=== PATIENT | male | born 1980 | race Caucasian/White ===

== ENCOUNTER 2020-04-27 10:43 | Emergency (ER) | payer OTHER, MEDICAID, SELFPAY ==
[2020-04-27 10:52] VITALS: BP 136/75; PULSE 88; RESP 17; TEMP 36.7; O2SAT 98; BMI 23.1
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
--- NOTE | 2020-04-27 11:05 | DI.RAD.S_ITS ---
PROCEDURE: XR RIBS BI MIN 4V W CXR1V INDICATIONS: rib pain both sides after injury TECHNIQUE: 4 views of the bilateral ribs were acquired, along with a single view chest. COMPARISON: None. FINDINGS: Surgical changes and devices: None. Bones and chest wall: No displaced rib fracture or suggestion of a nondisplaced rib fracture. No suspicious bony lesions. Overlying soft tissues appear unremarkable. Lungs and pleura: No pleural effusions or pneumothorax. Lungs appear clear. Mediastinum: Mediastinal contours appear normal. Heart size is normal. IMPRESSION: No displaced rib fracture or suggestion of a nondisplaced rib fracture. No pneumothorax. Dictated by: Henrique Briscoe M.D. on 04/27/2020 at 10:31 Approved by: Henrique Briscoe M.D. on 04/27/2020 at 10:33
== END 2020-04-27 11:52 | disposition home or self-care (01) ==
PROVIDERS: Emergency Provider Emergency Medicine
DX: S20.219A Contusion of unspecified front wall of thorax, initial encounter (principal); W50.0XXA Accidental hit or strike by another person, initial encounter
CPT/HCPCS: 71111; 99283

== ENCOUNTER 2020-06-03 12:26 | Emergency (ER) | payer OTHER, MEDICAID, SELFPAY ==
[2020-06-03 12:41] VITALS: BP 122/73; PULSE 93; RESP 16; TEMP 36.8; O2SAT 97; BMI 22.8
--- NOTE | 2020-06-03 12:43 | DI.RAD.S_ITS ---
PROCEDURE: XR FOOT LT MIN 3V INDICATIONS: injured from skateboarding TECHNIQUE: 3 views of the foot were acquired. COMPARISON: None. FINDINGS: Bones: There is a mildly comminuted fracture of the distal aspect of the 2nd proximal phalanx extending to the proximal interphalangeal joint. No dislocations. No suspicious bony lesions. Soft tissues: There is mild soft tissue swelling of the 2nd toe. No tibiotalar joint effusion. Achilles tendon appears normal. IMPRESSION: 1. Mildly comminuted fracture of the 2nd proximal phalanx with extension to the 2nd PIP joint. Dictated by: Yong Adam M.D. on 06/03/2020 at 13:49 Approved by: Yong Adam M.D. on 06/03/2020 at 13:51
--- NOTE | 2020-06-03 13:06 | ED.LOWEXIN ---
HPI - Extremity Injury (Lower) <CIRA Gutiérrez - Last Filed: 06/04/20 00:20> General Chief Complaint: Extremity Injury, Lower Stated Complaint: LEFT POINTER TOE INJURY Time Seen by Provider: 06/03/20 12:44 Source: patient Mode of arrival: Wheelchair Limitations: no limitations History of Present Illness HPI Narrative: This is a 40 year male, smoker, with chief complain of left forefoot pain after he injured the affected foot writing skateboard/keep flipper last night at 1130. Patient reports this is an isolated injury. Patient is not able to recall exact mechanism of injury and pain was not significant initially. After 30 minutes or so patient starting to have discomfort and this morning he had difficult time bearing weight, move his toes, or ambulate affected foot due to increase in pain and reports 10/10 with these activities. Patient reports intact sensation. He reports several injuries to affected foot, toes, ankles since he has been an athelete. Patient had used ice this morning without much improvement. Had not tried any medication for pain. Related Data Allergies Allergy/AdvReac Type Severity Reaction Status Date / Time No Known Drug Allergies Allergy Verified 04/27/20 10:52 Review of Systems <CIRA Gutiérrez - Last Filed: 06/04/20 00:20> Review of Systems Narrative: General: Denies fever, chills, fatigue, malaise, sweats. HEENT: Denies sinus pain, ear pain, sore throat, difficulty swallowing, dizziness. Respiratory: Denies dyspnea, cough, wheezing, hemoptysis, sputum. Cardiovascular: Denies chest pain, palpitations, orthopnea, edema. Gastrointestinal: Denies nausea, vomiting, abdominal pain, diarrhea, constipation, melena. : Denies dysuria, frequency, incontinence, hematuria, urinary retention. Musculoskeletal: See HPI Skin: Denies rash, skin lesions, or other. Neurologic: Denies weakness, headache, numbness, change in speech, confusion, seizures, incoordination. Patient History <CIRA Gutiérrez - Last Filed: 06/04/20 00:20> Medical History (Updated 06/03/20 @ 14:23 by CIRA Gutiérrez) No significant past medical history (Acute) Patient denies medical problems (Acute) Surgical History (Updated 06/03/20 @ 13:12 by CIRA Gutiérrez) No pertinent past surgical history (Acute) Social History Smoking Status: Current every day smoker Smoking Status: Current every day smoker tobacco type: cigarettes alcohol intake frequency: a few times a week Substance Use Type: marijuana Exam <CIRA Gutiérrez - Last Filed: 06/04/20 00:20> Narrative Exam Narrative: General appearance: well developed, well nourished, in no acute distress. Head: normocephalic, atraumatic, no scalp lesions, non-tender. ENT: Hearing grossly intact. Airway patent. Neck/Thyroid: neck supple, full range of motion, no visible masses or meningeal signs. No JVD, non-tender without lymphadenopathy. Skin: no suspicious rashes, lesions over visible areas. Warm and dry and appropriate color for ethnicity. Heart: no clubbing, no cyanosis, no edema. S1 and S2 normal. RRR w/o murmurs, clicks, or bruits. Lungs: Breathing even and unlabored. No stridor. No accessory muscles used. Able to speak in full sentences. Chest: normal shape and expansion. Abdomen: non-obese, non-distended. Neurologic: alert and oriented. Cognitive exam, DRIER AND GRINDER TENDER and PNS grossly intact on informal exam. Psych: good eye contact, normal affect. Initial Vital Signs Initial Vital Signs: Vital Signs Temperature 98.3 F 06/03/20 12:41 Pulse Rate 93 H 06/03/20 12:41 Respiratory Rate 16 06/03/20 12:41 Blood Pressure 122/73 06/03/20 12:41 Pulse Oximetry 97 06/03/20 12:41 Extrem Left lower extremity: ankle Details: normal to inspection; no tenderness and no swelling and foot Details: normal capillary refill, abnormal to inspection, tenderness Location: of the dorsal foot and of another digit Location: the 2nd digit and the 3rd digit, abnormal ROM of toe Details: pain with active ROM and pain with passive ROM, edema Location: of another digit Location: the 2nd digit, vascular exam Details: dorsalis pedis pulse present and normal capillary refill, motor-sensory exam Details: light-touch normal and other (erythema on 2nd toe); no unusual warmth, no abrasions and no lacerations <DO Miko Perea Last Filed: 06/07/20 18:20> Initial Vital Signs Initial Vital Signs: Vital Signs Temperature 98.3 F 06/03/20 12:41 Pulse Rate 93 H 06/03/20 12:41 Respiratory Rate 16 06/03/20 12:41 Blood Pressure 122/73 06/03/20 12:41 Pulse Oximetry 97 06/03/20 12:41 Procedures <CIRA Gutiérrez - Last Filed: 06/04/20 00:20> Orthopedic Splinting/Casting Injury #1: Side: left Lower Extremity Injury Location: toe Lower Extremity Immobilizer: post-op shoe and nicki tape Other Orthopedic Equipment: crutches Post splinting neuro exam: intact Post splinting vascular exam: intact Placed by: Nursing Scores <CIRA Gutiérrez - Last Filed: 06/04/20 00:20> GCS Montezuma coma scale eye opening: Spontaneous Bentley coma scale verbal response: Orientated [place] coma scale motor response: Obey commands Montezuma coma scale total score: 15 Course <CIRA Gutiérrez - Last Filed: 06/04/20 00:20> Orders Ordered: Discontinued Medications Ibuprofen (Advil) 800 mg PO NOW ONE Stop: 06/03/20 13:11 Last Admin: 06/03/20 14:03 Dose: 800 mg Documented by: KADE Vital Signs Vital signs: Vital Signs - 8 hr 06/03/20 12:41 Temperature 98.3 F Pulse Rate 93 H Respiratory Rate 16 Blood Pressure 122/73 Pulse Oximetry 97 <DO Miko Perea Last Filed: 06/07/20 18:20> Orders Ordered: Discontinued Medications Ibuprofen (Advil) 800 mg PO NOW ONE Stop: 06/03/20 13:11 Last Admin: 06/03/20 14:03 Dose: 800 mg Documented by: KADE Vital Signs Vital signs: Vital Signs - 8 hr 06/03/20 12:41 Temperature 98.3 F Pulse Rate 93 H Respiratory Rate 16 Blood Pressure 122/73 Pulse Oximetry 97 MDM - Extremity Injury (Lower) <CIRA Gutiérrez - Last Filed: 06/04/20 00:20> Differential Diagnosis Differential diagnosis: Likely fracture of toe and other (Contusion toes) Medical Records Attestation: I reviewed the patient's medical records. Imaging Data XR-Foot LT: Radiologist's Impression: [address] [address] XRay Report Signed Patient: Aguila Cazares TMR#: [id number] : 1980Acct:[id number] Age/Sex: 40 / MDate of Service: 06/03/20 Loc: ED Accession Number: [id number] Procedure: XR foot LT min 3V Ordering Provider: Mitch Titus PROCEDURE: XR FOOT LT MIN 3V INDICATIONS: injured from skateboarding TECHNIQUE: 3 views of the foot were acquired. COMPARISON: None. FINDINGS: Bones: There is a mildly comminuted fracture of the distal aspect of the 2nd proximal phalanx extending to the proximal interphalangeal joint. No dislocations. No suspicious bony lesions. Soft tissues: There is mild soft tissue swelling of the 2nd toe. No tibiotalar joint effusion. Achilles tendon appears normal. IMPRESSION: 1. Mildly comminuted fracture of the 2nd proximal phalanx with extension to the 2nd PIP joint. Dictated by: Yong Adam M.D. on 06/03/2020 at 13:49 Approved by: Yong Adam M.D. on 06/03/2020 at 13:51 MDM Narrative Medical decision making narrative: This is a 40-year-old male who presents to ED with left forefoot pain with increased redness, swelling, and pain to 2nd toe after he had injured last night after riding skateboard without shoes and is unable to recall exact mechanism of injury. X-ray test shows mildly communicated fracture of 2nd proximal phalanx with extension to the 2nd PIP joint. Patient has intact sensation and cap refill. Affected foot was splinted with nicki-taped (gauze) and ortho shoes provided for immobilization. Crutches provided and set for his height with teaching. Patient advised to follow-up with [facility] orthopedist and return precautions were discussed with patient. He verbalized understanding in agreement with treatment plan including RICE therapy. Discharge Plan Departure Patient Disposition: Home Clinical Impression: Closed fracture of toe Qualifiers: Encounter type: initial encounter Toe: unspecified toe Fracture alignment: nondisplaced Laterality: left Qualified Code(s): S92.912A - Unspecified fracture of left toe(s), initial encounter for closed fracture Discharge Date/Time: 06/03/20 14:49 Instructions: DI for Toe Fracture Activity Restrictions/Additional Instructions: You have been diagnosed with [mildly comminuted fracture of 2nd proximal toe ]. What to do: *Take your medications as directed. Please take [id number] Tylenol and or Motrin as needed for discomfort. Tylenol 650-1000 mg up to 3 to 4 times a day as needed for pain. Ibuprofen 400-600 mg up to 3 times a day with food to decrease GI irritation. Please use ortho shoes and nicki-taped. Use crutches for weight-bearing if there is pain. *Follow up with your primary care provider/orthopedist in 2-3 days, call for an appointment. Let them know you were seen in the ED and that we asked you to be seen in follow up. *Return to ED if you have any new, worsening, or concerning symptoms, such as [worsening pain, swelling, increase tingling/numbness/weakness affected toe, chest pain, breathing difficulty, unable to tolerate fluids or any acute concerns]. Referrals: [facility] [Provider Group] [facility] [Outside] <Aguila Fountain, - Last Filed: 06/07/20 18:20> Cosign ED Attending Cosyanyature Attestation: Dr Fountain Co-Sign Statement: I was available for consultation during this patient's emergency department visit. This chart is signed by myself for administrative purposes only. I did not have direct contact with this patient during this visit. They were seen independently by the APC.
[2020-06-03] MEDS: IBUPROFEN 400 MG TABLET 800 MG PO (14:03)
[2020-06-03 14:48] VITALS: BP 118/78; PULSE 75; RESP 14; O2SAT 98
--- NOTE | 2020-06-03 14:50 | PC.NURSE ---
demonstrated proper use of crutches. ortho shoe in place.
== END 2020-06-03 14:49 | disposition home or self-care (01) ==
PROVIDERS: Emergency Provider Nurse Practitioner Family
DX: S92.912A Unspecified fracture of left toe(s), initial encounter for closed fracture (principal); V00.131A Fall from skateboard, initial encounter
CPT/HCPCS: 73630; 99283; 99284

== ENCOUNTER 2020-07-26 11:35 | Emergency (ER) | payer OTHER, MEDICAID, SELFPAY ==
[2020-07-26 11:48] VITALS: BP 130/86; PULSE 71; RESP 16; TEMP 36.2; O2SAT 99
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
[2020-07-26 12:11] LABS: Bacteria Urine None Seen; RBC Urine None Seen (0-5/HPF); WBC Urine None Seen (0-5/HPF)
[2020-07-26 12:19] LABS: Appearance Urine UA CLEAR; Bilirubin Urine UA NEGATIVE (NEGATIVE); Color Urine UA YELLOW; Glucose Urine UA NEGATIVE (Negative); Ketones Urine UA NEGATIVE (NEGATIVE); Leukocyte Esterase Urine UA NEGATIVE (NEGATIVE); Nitrite Urine UA NEGATIVE (Negative); Occult Blood Urine UA NEGATIVE (Negative); Protein Urine UA NEGATIVE (Negative); Urobilinogen Urine UA 0.2 E.U./dL (0.2)
[2020-07-26 12:28] LABS: Culture Indicated Urine Cult Not Indicated
[2020-07-26 13:45] LABS: Urine N gonorrhoeae NOT DETECTED
[2020-07-26 13:51] LABS: Urine Chlamydia NOT DETECTED
== END 2020-07-26 12:49 | disposition home or self-care (01) ==
PROVIDERS: Emergency Provider Nurse Practitioner Family
DX: Z11.3 Encounter for screening for infections with a predominantly sexual mode of transmission (principal)
CPT/HCPCS: 81001; 87491; 87591; 99281; 99282

== ENCOUNTER 2020-11-12 10:58 | Emergency (ER) | payer OTHER, MEDICAID, SELFPAY ==
[2020-11-12 11:00] VITALS: BP 127/83; PULSE 75; RESP 14; TEMP 36.7; O2SAT 98; BMI 23.1
--- NOTE | 2020-11-12 11:37 | ED_ITS ---
HPI - Ear Problem General Chief complaint: Ear Stated complaint: Right ear pain/loss of hearing x3 days Time Seen by Provider: 11/12/20 11:27 Source: patient Mode of arrival: Ambulatory Limitations: no limitations History of Present Illness HPI Narrative: The patient complains of right ear pain for past 3 days. No no injuries. Not using Q-tips to clean ear. No drainage. No fever. Related Data Previous Rx's Medication Instructions Recorded amoxicillin-pot clavulanate 1 tab PO BID #14 tab 11/12/20 [Augmentin] ciprofloxacin-dexamethasone 4 drp EAR-RIGHT Q12H #7.5 ml 11/12/20 [Ciprodex] ciprofloxacin-hydrocortisone 3 drp EAR-RIGHT Q12H #10 ml 11/12/20 hydrocodone-acetaminophen 1 tab PO Q6H PRN #12 tab 11/12/20 ondansetron 4 mg PO Q8H PRN #10 tab 11/12/20 Allergies Allergy/AdvReac Type Severity Reaction Status Date / Time No Known Drug Allergies Allergy Verified 11/12/20 11:04 Review of Systems Review of Systems Narrative: GENERAL: Denies chills, fatigue, malaise, fever, sweats. HEENT: Denies sinus pain, complaint ear pain, denies sore throat RESPIRATORY: Denies dyspnea, cough CARDIOVASCULAR: Denies chest pain, palpitations GASTROINTESTINAL: Denies nausea, vomiting, abdominal pain : Denies dysuria, frequency, hematuria MUSCULOSKELETAL: denies muscle or bony pain SKIN: Denies rash, skin lesions NEUROLOGIC: Denies weakness, numbness ROS Unobtainable: All systems reviewed & are unremarkable except as noted in HPI and below Patient History Medical History No significant past medical history Patient denies medical problems Surgical History No pertinent past surgical history Social History Smoking Status: Current every day smoker Smoking Status: Current every day smoker tobacco type: cigarettes alcohol intake frequency: 3 or more drinks per day Substance Use Type: marijuana Exam Narrative Exam Narrative: GENERAL: in no distress, not toxic not dyspneic HEAD: Normocephalic. EYES: Pupils equal round No scleral icterus. No injection no discharge ENT: Mucous membranes moist. Examination left ear nontender tragus normal exte rnal ear. Normal tympanic membrane no erythema no bulging. Examination right ear. No tragus tenderness. External exam normal. There is a small cystic structure at the 11 o'clock position in the external canal. No surrounding erythema. No discharge. Tympanic membrane not erythematous or bulging. NECK: Trachea midline. CARDIOVASCULAR: Regular rate and rhythm without murmurs RESPIRATORY: Clear to auscultation. Breath sounds equal bilaterally. No wheezes, rales, or rhonchi. NEURO: AOx4. SKIN: Warm and dry PSYCH: Not anxious, is cooperative Initial Vital Signs Initial Vital Signs: Vital Signs Temperature 98.0 F 11/12/20 11:00 Pulse Rate 75 11/12/20 11:00 Respiratory Rate 14 11/12/20 11:00 Blood Pressure 127/83 11/12/20 11:00 Pulse Oximetry 98 11/12/20 11:00 Course Course Course Narrative: No new issues during course of stay. Orders Ordered: ED Orders 11/12/20 16:26 Wound Culture and Gram Stain Stat Reevaluation(s) Reevaluation #1: Patient agrees with treatment plan to see Dr. Gardner today. Time: 11:47 Reevaluation #2: Patient understands will need to have scope here in the emergency department. Consultations Consultation #1: s/w dr alban gardner, ent, will see pt today. no abx at this time Time: 11:47 Consultation #2: Dr. Gardner in the department now to evaluate patient your pain. Time: 16:10 Vital Signs Vital signs: Vital Signs - 8 hr 11/12/20 11:00 Temperature 98.0 F Pulse Rate 75 Respiratory Rate 14 Blood Pressure 127/83 Pulse Oximetry 98 Medical Decision Making Differential Diagnosis Differential Diagnosis: Otitis externa. Otitis media. Cyst. Abscess MDM Narrative Medical decision making narrative: Appropriate for discharge home. Patient seen by Dr. Gardner here in the emergency department for bedside otoscope/procedure. Please see his notes. Patient agrees with treatment plan and discharged home. Not toxic. Discharge Plan Departure Patient Disposition: Home Clinical Impression: Earache Instructions: DI for Ear Pain-Adult Activity Restrictions/Additional Instructions: Return if worse if any questions or concerns. Call your insurance company to see if your able to see Dr. Alban Gardner for follow-up within a week for recheck of your here. See family doctor for recheck as well. Continue ear care as instructed by Dr. Gardner. Prescriptions: New hydrocodone-acetaminophen 5-325 mg tablet 1 tab PO Q6H PRN (Reason: pain) Qty: 12 RF: 0 ondansetron 4 mg tablet,disintegrating 4 mg PO Q8H PRN (Reason: nausea and vomiting) Qty: 10 RF: 0 ciprofloxacin-hydrocortisone 0.2-1 % drops,suspension 3 drp EAR-RIGHT Q12H Qty: 10 RF: 0 amoxicillin-pot clavulanate [Augmentin] 875-125 mg tablet 1 tab PO BID Qty: 14 RF: 0 ciprofloxacin-dexamethasone [Ciprodex] 0.3-0.1 % drops,suspension 4 drp EAR-RIGHT Q12H Qty: 7.5 RF: 0 Referrals: Alban Gardner MD [Physician] -
--- NOTE | 2020-11-12 16:45 | PC.NURSE ---
Pt advised to come back to ED by Dr Cooper so he can evaluate him in a room with suction to drain abscess in ear. arrived back and placed in 3A. RN sent wound culture per Dr Cooper from R ear canal. Cipro cancelled and new ABX written--see MD note. Pt DC'd post procedure.
[2020-11-12 16:47] VITALS: BP 126/84; PULSE 76; RESP 16; O2SAT 97
--- NOTE | 2020-11-12 19:39 | PM.CN ---
History of Present Illness Consult details Date Patient Seen: 11/12/20 Time Patient Seen: 16:00 Chief complaint: Right ear pain/loss of hearing x3 days Reason for consult: RIGHT ear canal abscess Requesting provider: Nayan Henderson Narrative: 40-year-old male Q-tip user presents with a 3 day history of right otalgia. No prior similar history, no chronic hearing loss, no otorrhea, tinnitus, or balance issues. Cyst versus abscess of the ear canal noted by Dr. Henderson, consultation requested for specialized care including the operating microscope. No other ENT complaints. Meds Home Medications and Allergies Home Medications Medication Instructions Recorded Confirmed Type amoxicillin-pot clavulanate 1 tab PO BID #14 tab 11/12/20 Rx [Augmentin] ciprofloxacin-dexamethasone 4 drp EAR-RIGHT Q12H #7.5 ml 11/12/20 Rx [Ciprodex] ciprofloxacin-hydrocortisone 3 drp EAR-RIGHT Q12H #10 ml 11/12/20 Rx hydrocodone-acetaminophen 1 tab PO Q6H PRN #12 tab 11/12/20 Rx ondansetron 4 mg PO Q8H PRN #10 tab 11/12/20 Rx Allergies Allergy/AdvReac Type Severity Reaction Status Date / Time No Known Drug Allergies Allergy Verified 11/12/20 11:04 Review of Systems Review of Systems ROS: Yes All systems reviewed with the patient and are negative except as otherwise documented Exam Vital Signs (past 8 hours): - 11/12/20 16:47 Pulse Rate 76 Respiratory Rate 16 Blood Pressure 126/84 Pulse Oximetry 97 Oxygen Delivery Method Room Air Narrative Exam Narrative: Well-developed well-nourished male in no acute distress. Head is normocephalic atraumatic. Alert and oriented x3. External ears are normal, obvious purulence and moisture within the right ear canal. Left ear canal is normal with intact tympanic membrane, clear middle ear. External nose is normal, oral cavity not examined. Neck is soft nontender no masses. See procedure note for details, separately dictated. Assessment & Plan Assessment & Plan narrative: Assessment: Right external auditory canal abscess/infected cyst, with spontaneous rupture 2. Right acute otitis externa, no evidence of otitis media 3. otalgia Plan: As discussed with the patient and the ER physician, dry ear precautions, soak the wick with Ciprodex 2-3 times daily for at least the next week, or 2 days beyond any symptoms, may remove when asymptomatic or may fall out on its own. Begin the Augmentin, use at least a few days beyond any symptoms whatsoever, a minimum of 5-7 days, may alter based on his response and culture results. If necessary, and allowed by his insurance plan, he may follow-up in our office next week, but may call us at any point. I do not recommend Q-tips in the future. Patient agrees with the plan, understands, and is appreciative.
--- NOTE | 2020-11-12 19:47 | PM.OP.1 ---
Operative Date/Time/Diagnoses Date of procedure: 11/12/20 Time of procedure: 16:00 Pre-op diagnosis: Right external auditory canal abscess/infected cyst, otorrhea, otalgia Post-op diagnosis: same Procedure & Clinicians Procedure: Debridement/cerumen removal right utilizing the binocular microscope Same procedure as scheduled: Yes Indications: 40-year-old male with the above diagnoses presents for the above procedure. Following verbal consent he elected to proceed. Surgeon: Mario Cooper Click Yes if Unassisted: Yes Anesthesia Type: None Operative Notes Findings: Purulence and keratin debris, scant cerumen cleared from canal to reveal spontaneously draining cyst versus abscess of the posterior medial cartilaginous canal with mild to moderate swelling but significant tenderness. TM intact, clear middle ear. Closure Type: not applicable Specimen(s): other (Swab culture from right ear canal) Estimated Blood Loss (mL): 0 Blood products transfused: none Procedure in detail: Following verbal consent, he was placed in the supine position and the operating microscope was used to examine 1st the normal left ear and then the right ear. Suction was used to clear the muco purulence and keratin debris as well as to milk the abscess of any further liquid. A wick was placed in the ear canal, later to be saturated with the Ciprodex once he Fills it. He tolerated the procedure well without known complication. Culture was taken prior to the suctioning. Complications: none Post-operative Condition: stable Disposition: other (Home) Plan for aftercare: Maintain wick as long as symptomatic, soaked with Ciprodex 2-3 times daily, begin Augmentin for up to 10 days, use at least a few days beyond any symptoms. Call with any worsening, follow-up in the office next week if possible. No water exposure to that ear.
== END 2020-11-12 16:30 | disposition home or self-care (01) ==
PROVIDERS: Emergency Provider Emergency Medicine
DX: H92.01 Otalgia, right ear (principal)
CPT/HCPCS: 69020; 87070; 87075; 87205; 99281; 99282

== ENCOUNTER 2023-11-07 08:37 | Emergency (ER) | payer OTHER, MEDICAID, SELFPAY ==
[2023-11-07 08:45] VITALS: BP 122/59; PULSE 63; RESP 16; TEMP 36.4; O2SAT 99; BMI 23.1
--- NOTE | 2023-11-07 08:50 | DI.RAD.S_ITS ---
PROCEDURE: XR ANKLE RT MIN 3V INDICATIONS: pain/swelling/ skateboard injury TECHNIQUE: 3 views of the ankle were acquired. COMPARISON: None. FINDINGS: Bones: No acute fractures or dislocations. Ankle mortise is normally aligned. No suspicious bony lesions. Soft tissues: No tibiotalar joint effusion. Achilles tendon appears normal. IMPRESSION: No acute osseous abnormality. If there is continued clinical concern or persistent symptoms, repeat radiographs or cross-sectional imaging (e.g. CT, MRI) may be helpful for further evaluation. Approved by: Huey Salvador M.D. on 11/07/2023 at 9:59
--- NOTE | 2023-11-07 09:02 | ED_ITS ---
HPI - Extremity Injury (Lower) General Chief Complaint: Extremity Injury, Lower Stated Complaint: rolled ankle Time Seen by Provider: 11/07/23 09:02 Source: patient, RN notes reviewed and old records reviewed Mode of arrival: Ambulatory Limitations: no limitations History of Present Illness HPI Narrative: 43-year-old male chronic tobacco use, patient presents with complaint of right ankle pain. Patient was skateboarding yesterday lead in his left ankle, has not had tingling sensation different than breaking or spreading the ankle before proceeding to continue to skate woke up with increased right ankle pain decreased range of motion and swelling. Painful to weightbear. Patient states no significant swelling. He is pain particularly in the medial side of the ankle. Has some of the lateral but not as much. He states he feels a little bit of pressure to the foot it is he can not really straightened the foot. He states he has broken his ankle in the past he has had sprains he states this feels different. He does state that he landed directly kind of flat on his foot did not invert or jacque the ankle when a landed. Patient states no other medical issues. Denies any other major surgeries. Does use tobacco daily, drinks alcohol, uses marijuana no IV or recreational drugs. Related Data Previous Rx's Medication Instructions Recorded amoxicillin 875 mg-potassium 1 tab PO BID #14 tabs 11/12/20 clavulanate 125 mg tablet (Augmentin) ciprofloxacin 0.2 %-hydrocortisone 3 drp EAR-RIGHT Q12H #10 mL 11/12/20 1 % ear drops,suspension ciprofloxacin 0.3 %-dexamethasone 4 drp EAR-RIGHT Q12H #7.5 mL 11/12/20 0.1 % ear drops,suspension (Ciprodex) hydrocodone 5 mg-acetaminophen 325 1 tab PO Q6H PRN pain #12 tabs 11/12/20 mg tablet ondansetron 4 mg disintegrating 4 mg PO Q8H PRN nausea and 11/12/20 tablet vomiting #10 tabs tramadol 50 mg tablet 50 mg PO Q6H PRN pain #10 tabs 11/07/23 Allergies Allergy/AdvReac Type Severity Reaction Status Date / Time No Known Drug Allergies Allergy Verified 11/12/20 11:04 Review of Systems Review of Systems ROS Unobtainable: All systems reviewed & are unremarkable except as noted in HPI and below Patient History Medical History No significant past medical history Patient denies medical problems Surgical History No pertinent past surgical history Social History Smoking Status: Current every day smoker Smoking Status: Current every day smoker tobacco type: cigarettes alcohol intake frequency: 3 or more drinks per day Alcohol type: beer Substance Use Type: marijuana Exam Narrative Exam Narrative: GENERAL: Alert and oriented x three, male in mild distress HEENT: Head normocephalic, atraumatic, EOMI, pupils reactive, face symmetric, moist mucous membranes NECK: Supple, full range of motion CARDIOVASCULAR: Regular rate and rhythm without murmurs, rubs or gallops. RESPIRATORY: Breath sounds equal bilaterally, no wheezes rales or rhonchi. EXTREMITIES: Decreased range of motion of the right ankle, patient has normal range of motion of the knee and hip. No obvious edema, patient has quite a bit of tenderness over the medial malleoli, mildly over the lateral. Patient has a little bit of mild deformity of the ankle but he states that is normal from prior injuries. No obvious ecchymosis or edema. No bony tenderness over the toes, metatarsals or heel. Patient does have pain with weight-bearing., no clubbing or edema. Neurovascularly intact. Patient has 2+ dorsalis pedis. Sensation throughout the foot. NEUROLOGICAL: Cranial nerves II through XII grossly intact. Moving all extremities SKIN: Warm, dry, no petechiae, no rashes or lesions. Initial Vital Signs Initial Vital Signs: Vital Signs Temperature 97.5 F L 11/07/23 08:45 Pulse Rate 63 11/07/23 08:45 Respiratory Rate 16 11/07/23 08:45 Blood Pressure 122/59 L 11/07/23 08:45 Pulse Oximetry 99 11/07/23 08:45 Oxygen Delivery Method Room Air 11/07/23 08:45 Course Orders Ordered: ED Orders 11/07/23 08:50 XR ankle RT min 3V Stat Vital Signs Vital signs: Vital Signs - 8 hr 11/07/23 08:45 Temperature 97.5 F L Pulse Rate 63 Respiratory Rate 16 Blood Pressure 122/59 L Pulse Oximetry 99 Oxygen Delivery Method Room Air MDM - Extremity Injury (Lower) Imaging Data Extremity x-ray #1: Radiologist's Impression: [address] [address] XRay Report Signed Patient: Aguila Cazares MR#: [id number] : 1980 Acct:[id number] Age/Sex: 43 / M Date of Service: 11/07/23 Loc: ED Accession Number: [id number] Procedure: XR ankle RT min 3V Ordering Provider: Gabi Christine D.O. PROCEDURE: XR ANKLE RT MIN 3V INDICATIONS: pain/swelling/ skateboard injury TECHNIQUE: 3 views of the ankle were acquired. COMPARISON: None. FINDINGS: Bones: No acute fractures or dislocations. Ankle mortise is normally aligned. No suspicious bony lesions. Soft tissues: No tibiotalar joint effusion. Achilles tendon appears normal. IMPRESSION: No acute osseous abnormality. If there is continued clinical concern or persistent symptoms, repeat radiographs or cross-sectional imaging (e.g. CT, MRI) may be helpful for further evaluation. Approved by: Huey Salvador M.D. on 11/07/2023 at 9:59 MDM Narrative Medical decision making narrative: 43-year-old male who meet [place] ankle rules for imaging with fall kind of directly onto his ankle without inversion or eversion. Patient has quite a bit of tenderness on medial malleolus and painful to weightbear. X-ray imaging shows no acute change. Patient is quite tender with weight- bearing and over the medial malleolus we will place in walking boot, crutches with recommendation for follow up in 7-10 days if no improvement in symptoms. Discharge Plan Departure Patient Disposition: Home Clinical Impression: Ankle sprain Clinical Impression: (Ruled Out): Lower leg edema Activity Restrictions/Additional Instructions: Follow-up in 7-10 days for repeat imaging if your symptoms are not improving, you can sometimes have small fractures that do not show up on initial x-ray and will be visible on repeat imaging. Your x-ray today does not show any obvious break or fracture. You may take Tylenol up to a 1000 mg every 6 hours and/or ibuprofen up to 600 mg every 6 hours. You can take tramadol 1 to 2 tablets every 6 hours as needed for pain. This medication can make you sleepy do not drive, perform hazardous activities or adriana e any major decisions while taking it. This medication will make you constipated please take a stool softener once to twice daily until stools are soft and regular. Splint Care: Keep splint clean and dry. Elevated affected body part to decrease swelling. OK to use ice pack on the affected body part. Use for 15-20 minutes each time, for 5-6x per day. If you develop worsening pain, numbness, tingling, discoloration of the affected body part, loosen the splint by loosening the SARITHA wrap, and either see your doctor for an urgent re-assessment, or return to the Emergency Department. Return to the Emergency Department for any new or worsening symptoms. Prescriptions: New tramadol 50 mg tablet 50 mg PO Q6H PRN (Reason: pain) Qty: 10 0RF No Action hydrocodone-acetaminophen 5-325 mg tablet 1 tab PO Q6H PRN (Reason: pain) Qty: 12 0RF ondansetron 4 mg tablet,disintegrating 4 mg PO Q8H PRN (Reason: nausea and vomiting) Qty: 10 0RF ciprofloxacin-hydrocortisone 0.2-1 % drops,suspension 3 drp EAR-RIGHT Q12H Qty: 10 0RF amoxicillin-pot clavulanate [Augmentin] 875-125 mg tablet 1 tab PO BID Qty: 14 0RF ciprofloxacin-dexamethasone [Ciprodex] 0.3-0.1 % drops,suspension 4 drp EAR-RIGHT Q12H Qty: 7.5 0RF Referrals: Logan Barajas MD [Physician] - Stand Alone Forms: Patient Portal/API
== END 2023-11-07 10:29 | disposition home or self-care (01) ==
PROVIDERS: Emergency Provider Emergency Medicine
DX: S93.401A Sprain of unspecified ligament of right ankle, initial encounter (principal); X50.1XXA Overexertion from prolonged static or awkward postures, initial encounter
CPT/HCPCS: 73610; 99283

== ENCOUNTER 2025-06-19 16:40 | Emergency (ER) | payer MEDICAID, SELFPAY ==
[2025-06-19 16:54] VITALS: BP 129/73; PULSE 68; RESP 16; TEMP 37.2; O2SAT 100; BMI 23.1
--- NOTE | 2025-06-19 18:37 | ED_ITS ---
HPI - Extremity Injury (Lower) General Chief Complaint: Extremity Injury, Lower Stated Complaint: ankle pain/injury Time Seen by Provider: 06/19/25 18:35 History of Present Illness HPI Narrative: 45-year-old male pivoted today while working on a car this afternoon, felt left posterior distal thigh pain, some knee pain, has known Ma's cyst left knee, worse pain in the thigh with movement of ankle and foot but no specific pain in the ankle or the foot on the left side. Also with this fall he bumped his head, no loss of consciousness, has significant large swelling to forehead area, has known lesion in that area that seems to have increased in side after acute trauma today. No blood thinner medications. No loss of consciousness reported. No seizure activity reported. Related Data Previous Rx's ?Medication ?Instructions ?Recorded amoxicillin 875 mg-potassium 1 tab PO BID #14 tabs clavulanate 125 mg tablet (Augmentin) ciprofloxacin 0.2 %-hydrocortisone 3 drp EAR-RIGHT Q12 H #10 mL 11/12/20 1 % ear drops,suspension ciprofloxacin 0.3 %-dexamethasone 4 drp EAR-RIGHT Q12H #7.5 mL 11/12/20 0.1 % ear drops,suspension (Ciprodex) hydrocodone 5 mg-acetaminophen 325 1 tab PO Q6H PRN pa in #12 tabs 11/12/20 mg tablet ondansetron 4 mg disintegrating 4 mg PO Q8H PRN nausea and 11/12/20 tablet vomiting #10 tabs tramadol 50 mg tablet 50 mg PO Q6H PRN pain #10 ta bs 11/07/23 Allergies Allergy/AdvReac Type Severity Reaction Status Date / Time No Known Drug Allergies Allergy Verified 11/12/20 11:04 Patient History Medical History No significant past medical history Patient denies medical problems Surgical History No pertinent past surgical history tobacco type: cigarettes alcohol intake frequency: 3 or more drinks per day Alcohol type: beer Exam Narrative Exam Narrative: GENERAL: Well-developed patient, in mild distress. HEAD: 3.5 cm diameter oval central forehead soft lesion, without redness or fluctuance, no expressible fluid. EYES: Pupils equal round and reactive. Extraocular motions intact. No scleral icterus. No injection or drainage. ENT: Nose without bleeding, purulent drainage. Throat without erythema, tonsillar hypertrophy or exudate. Airway patent. NECK: Trachea midline. Non tender CARDIOVASCULAR: Regular rate and rhythm without murmurs, gallops, or rubs. RESPIRATORY: Clear to auscultation. Breath sounds equal bilaterally. No wheezes, rales, or rhonchi. GASTROINTESTINAL: Abdomen soft, non-tender, nondistended. EXTREMITIES: Mild tenderness distal posterior left thigh, in the popliteal space there is a 3 by 3 cm non red nonpainful soft fluid like mass consistent with Ma's cyst, no bruising or laceration or abrasion changes to the leg. No tenderness medial or lateral joint line, no knee effusion obvious. No calf swelling or calf tenderness. BACK: Nontender without deformity or crepitance. No flank tenderness. NEURO: AOx3. Motor functions grossly nonfocal. SKIN: No rash or erythema of visible areas Initial Vital Signs Initial Vital Signs: Vital Signs Temperature 98.9 F 06/19/25 16:54 Pulse Rate 68 06/19/25 16:54 Respiratory Rate 16 06/19/25 16:54 Blood Pressure 129/73 06/19/25 16:54 Pulse Oximetry 100 06/19/25 16:54 Oxygen Delivery Method Room Air 06/19/25 16:54 Course Orders Ordered: ED Orders 06/19/25 18:49 CT head/brain wo con Stat 06/19/25 18:50 XR knee LT 3V Stat Vital Signs Vital signs: Vital Signs - 8 hr 06/19/25 16:54 Temperature 98.9 F Pulse Rate 68 Respiratory Rate 16 Blood Pressure 129/73 Pulse Oximetry 100 Oxygen Delivery Method Room Air MDM - Extremity Injury (Lower) Imaging Data Left knee x-ray series: Radiologist's Impression: [address] [address] XRay Report Signed Patient: Aguila Cazares MR#: [id number] : 1980 Acct:[id number] Age/Sex: 45 / M Date of Service: 06/19/25 Loc: ED Accession Number: [id number] Procedure: XR knee LT 3V Ordering Provider: Michael De La Cruz MD PROCEDURE: XR KNEE LT 3V INDICATIONS: left knee XRay TECHNIQUE: 3 views of the knee were acquired. COMPARISON: None. FINDINGS: Bones: No fractures or dislocations. No suspicious bony lesions. Soft tissues: No joint effusion. No suspicious soft tissue calcifications. IMPRESSION: No acute bony abnormality or significant effusion. Dictated by: Kan Barr M.D. on 06/19/2025 at 19:12 Approved by: Kan Barr M.D. on 06/19/2025 at 19:12 CT scan - head: Radiologist's Impression: [place] [address] CT Scan Report Signed Patient: Aguila Cazares MR#: [id number] : 1980 Acct:[id number] Age/Sex: 45 / M Date of Service: 06/19/25 Loc: ED Accession Number: [id number] Procedure: CT head/brain wo con Ordering Provider: Michael De La Cruz MD PROCEDURE: CT HEAD/BRAIN WO CON INDICATIONS: contusion, forehead mass, increasing TECHNIQUE: Noncontrast 4.5 mm thick angled axial sections acquired from the foramen magnum to the vertex, with coronal and sagittal reformats. For radiation dose reduction, the following was used: automated exposure control, adjustment of mA and/or kV according to patient size. COMPARISON: None. FINDINGS: Image quality: Diagnostic. CSF spaces: Basal cisterns are patent. No extra-axial fluid collections. Ventricles are normal in size and shape. Brain: No midline shift. No intracranial mass effect or hemorrhage. Ojeda- white matter interface is normal. Skull and face: Midline forehead scalp lipoma. Calvarium and visualized facial bones are intact, without suspicious lesions. Sinuses: Visualized sinuses and mastoids are clear. IMPRESSION: No acute intracranial pathology. Palpable forehead lump represents a lipoma. Dictated by: Kan Barr M.D. on 06/19/2025 at 19:11 Approved by: Kan Barr M.D. on 06/19/2025 at 19:12 [facility] Narrative Medical decision making narrative: 45-year-old male with twisting motion working on a car at home, left posterior thigh pain, distal biceps femoris muscle strain suspected clinically. No gross knee infusion or instability. X-ray left knee negative. Patient also has bruising to pre-existing forehead lesion that has never been imaged, soft tissue mass possible lipoma or cyst, with some increased size from direct blow. No loss of consciousness. Patient we would like imaging. CT head contrast showed no acute intracranial injuries or bony changes, soft tissue lipoma like changes noted. Patient given copies of x-ray reports and CT reports. Advised [id number] analgesics as needed. Placed in left knee immobilizer with nonweightbearing crutches for now, pending follow up Orthopedic surgery Clinic evaluation. Given contact information for Orthopedic surgery Clinic. Return precautions discussed. Discharged home. Discharge Plan Departure Patient Disposition: Home Clinical Impression: Muscle strain of left thigh, Forehead contusion, Lipoma of skin, face Activity Restrictions/Additional Instructions: Pivoting popping sensation left hamstring area, concern for hamstring strain or possible small tear by clinical exam and history. X-ray of the knee bony structures looked reassuring. No gross knee instability on examination. Trial of nonweightbearing with crutches, knee immobilizer for comfort measure for now. Consider follow up with local orthopedic surgery, clinic contact information provided. Consider use of Tylenol and or Motrin as needed for pain control. Recheck with Orthopedic surgery early next week. Return to this/nearest emergency department for any change worsening symptoms or any concerns prior. Also swelling increased to existing chronic forehead lesion, no prior imaging, no loss of consciousness, 3-4 cm diameter skin lesion seems soft tissue on examination. CT head noncontrast study was obtained, no brain lesions or bony changes, radiology report suggestive of lipoma (benign fat body). This could be removed surgically, could consider Plastic surgery consultation, none on staff here, if he would like to pursue removal. Prescriptions: No Action tramadol 50 mg tablet 50 mg PO Q6H PRN (Reason: pain) Qty: 10 0RF hydrocodone-acetaminophen 5-325 mg tablet 1 tab PO Q6H PRN (Reason: pain) Qty: 12 0RF ondansetron 4 mg tablet,disintegrating 4 mg PO Q8H PRN (Reason: nausea and vomiting) Qty: 10 0RF ciprofloxacin-hydrocortisone 0.2-1 % drops,suspension 3 drp EAR-RIGHT Q12H Qty: 10 0RF amoxicillin-pot clavulanate [Augmentin] 875-125 mg tablet 1 tab PO BID Qty: 14 0RF ciprofloxacin-dexamethasone [Ciprodex] 0.3-0.1 % drops,suspension 4 drp EAR-RIGHT Q12H Qty: 7.5 0RF Referrals: Elvin Cordova MD [Physician, Orthopedic Surgery] Stand Alone Forms: Patient Portal/API
--- NOTE | 2025-06-19 18:49 | DI.CT.S_ITS ---
PROCEDURE: CT HEAD/BRAIN WO CON INDICATIONS: contusion, forehead mass, increasing TECHNIQUE: Noncontrast 4.5 mm thick angled axial sections acquired from the foramen magnum to the vertex, with coronal and sagittal reformats. For radiation dose reduction, the following was used: automated exposure control, adjustment of mA and/or kV according to patient size. COMPARISON: None. FINDINGS: Image quality: Diagnostic. CSF spaces: Basal cisterns are patent. No extra-axial fluid collections. Ventricles are normal in size and shape. Brain: No midline shift. No intracranial mass effect or hemorrhage. Ojeda- white matter interface is normal. Skull and face: Midline forehead scalp lipoma. Calvarium and visualized facial bones are intact, without suspicious lesions. Sinuses: Visualized sinuses and mastoids are clear. IMPRESSION: No acute intracranial pathology. Palpable forehead lump represents a lipoma. Dictated by: Kan Barr M.D. on 06/19/2025 at 19:11 Approved by: Kan Barr M.D. on 06/19/2025 at 19:12
--- NOTE | 2025-06-19 18:50 | DI.RAD.S_ITS ---
PROCEDURE: XR KNEE LT 3V INDICATIONS: left knee XRay TECHNIQUE: 3 views of the knee were acquired. COMPARISON: None. FINDINGS: Bones: No fractures or dislocations. No suspicious bony lesions. Soft tissues: No joint effusion. No suspicious soft tissue calcifications. IMPRESSION: No acute bony abnormality or significant effusion. Dictated by: Kan Barr M.D. on 06/19/2025 at 19:12 Approved by: Kan Barr M.D. on 06/19/2025 at 19:12
--- NOTE | 2025-06-19 19:46 | PC.NURSE ---
Imaging done, pt seen and assessed by provider prior to this RN being able to assess.
== END 2025-06-19 19:45 | disposition home or self-care (01) ==
PROVIDERS: Emergency Provider Emergency Medicine
DX: S00.83XA Contusion of other part of head, initial encounter (principal); S76.812A Strain of other specified muscles, fascia and tendons at thigh level, left thigh, initial encounter; D17.0 Benign lipomatous neoplasm of skin and subcutaneous tissue of head, face and neck; X50.1XXA Overexertion from prolonged static or awkward postures, initial encounter; M25.562 Pain in left knee
CPT/HCPCS: 70450; 73562; 99283; 99284